=== PATIENT | female | born 1970 | race Caucasian/White ===

== ENCOUNTER → 2021-08-25 | Day surgery (SDC) | payer BC ==
[~2021-08-25] MED LIST: Glycopyrrolate 0.2 MG/ML 2 ML SDV ONE; Ketamine 200 MG/20 ML MDV ONE; Phenylephrine 1% 10 MG/ML SDV ONE; Propofol 200 MG/20 ML SDV ONE; fentaNYL 100 MCG/2 ML SDV ONE
[2021-08-25] MEDS: Lactated Ringers 1,000 ML IV SCH (08:42)
[2021-08-25 10:28] VITALS: BP 101/72; PULSE 77
== END ==
LOC: CC.SDS 08:31
PROVIDERS: ATTEND Surgery
DX: K64.4 Residual hemorrhoidal skin tags (principal); E78.5 Hyperlipidemia, unspecified; F32.A Depression, unspecified; E66.9 Obesity, unspecified; Z79.899 Other long term (current) drug therapy; Z68.34 Body mass index [BMI] 34.0-34.9, adult
CPT/HCPCS: J2370; J2704; J3010; J3490; J7120